=== PATIENT | female | born 1965 | race Native Hawaiian/Other Pacific Islander ===

== ENCOUNTER 2017-03-15 05:48 | Day surgery (SDC) | payer OTHER ==
[2017-03-08 09:06] VITALS: RESP 18
[2017-03-15] MEDS ORDERED: Lidocaine 1% Inj (20ml) ONE (07:15)
[2017-03-15] MEDS ORDERED: ceFAZolin IV 1 gm in Dextrose 2 GM/100 ML BAG IVPB ONE (07:16)
[2017-03-15] MEDS ORDERED: Ropivacaine 0.5% 30ML IV ONE (07:35)
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
[2017-03-15 07:39] VITALS: BMI 26.4
[2017-03-15] MEDS ORDERED: Propofol 10 mg/ml Inj (20 ML) ONE ×2 (07:39→10:09)
[2017-03-15] MEDS ORDERED: Midazolam 2 MG/2 ML VIAL ONE (07:40)
[2017-03-15] MEDS ORDERED: Succinylcholine 200 mg/10 ml Inj IV ONE ×2 (07:40→10:09)
[2017-03-15] MEDS ORDERED: Lidocaine 2% MPF (5 ml) Inj ONE ×2 (07:44→10:15)
[2017-03-15] MEDS ORDERED: Dexamethasone 4 mg/1 ml ONE (07:44)
[2017-03-15] MEDS ORDERED: EPINEPHrine 1 mg/ml (1:1000) Inj ONE (07:46)
[2017-03-15] MEDS ORDERED: ePHEDrine 50 mg/ml Inj ONE (08:12)
[2017-03-15] MEDS ORDERED: EPINEPHrine 1 mg/ml (1:1000) Inj IV ONE (08:45)
[2017-03-15] MEDS ORDERED: Oxycodone/Acetaminophen 5/325 mg Tab PO PRN (08:50)
[2017-03-15] MEDS ORDERED: Lactated Ringer's 1,000 ML IV ONE ×2 (09:02)
[2017-03-15] MEDS: methylPREDNISolone Depo 80 mg/ml Inj ONE ×2 (09:15→09:24)
[2017-03-15] MEDS: Bupivacaine 0.5% Inj(30mL) ONE ×2 (09:15→09:24)
[2017-03-15] MEDS: Bacitracin Ointment 30 GM TUBE ONE ×2 (09:17→09:25)
[2017-03-15] MEDS ORDERED: HYDROmorphone 0.5 mg/0.5 ml ISec IVP PRN (09:34)
--- NOTE | 2017-03-15 09:38 | PCM.SURG1 ---
Surgeon's Initial Post Op Note - Surgeon's Notes Surgeon: ben Information Systems Auditor: [place] Type of Anesthesia: General Endo, Spinal Anesthesia Administered By: DR Jamie gurrola Pre-Operative Diagnosis: post traumatic derangement L knee Operative Findings: chondral fx femoral trochlea (full thickness cartilage loss) . tricompartmental synovitis. tear medial meniscus/tear lateral meniscus Post-Operative Diagnosis: as above Operation Performed: arthroscopic chondroplasty/microfracture. arthroscopic tricompasrtmental synovectomy. arthroscopic partial medial/lateral meniscectomy. intraarticular injection Specimen/Specimens Removed: cartilage?synovium/bone fragments Estimated Blood Loss: EBL {In ML}: 2 Blood Products Given: N/A Drains Used: No Drains Post-Op Condition: Good Date of Surgery/Procedure: 03/15/17 Time of Surgery/Procedure: 08:45 (time in room 7:45/anwetshesdia indcution time)
[2017-03-15] MEDS ORDERED: Lactated Ringer's 1,000 ML IV SCH (09:45)
[2017-03-15] MEDS ORDERED: Rocuronium 10 mg/ml (5 ml) ONE (10:09)
[2017-03-15 10:59] VITALS: O2SAT 97
[2017-03-15 12:53] VITALS: BP 113/70; PULSE 86; TEMP 97.4
--- NOTE | 2017-03-16 10:30 | OP ---
PROCEDURE DATE: 03/15/2017 [facility] PREOPERATIVE DIAGNOSIS: Post-traumatic derangement of the right knee. POSTOPERATIVE DIAGNOSES: Tear, medial meniscus; tear, lateral meniscus; tricompartmental synovitis; chondral fracture, femoral trochlea. OPERATIVE PROCEDURE: 1. Arthroscopic microfracture/chondroplasty, femoral trochlea. 2. Surgical arthroscopy, partial medial and partial lateral meniscectomy. 3. Surgical arthroscopy, partial tricompartmental synovectomy. 4. Intra-articular injection, application of knee immobilizer. SURGEON: Johnny Bustos MD BYPRODUCT ENGINEER: Maryann Valero, certified registered nursing first aid teacher. TYPE OF ANESTHESIA: General endotracheal anesthesia, Jamie Adames MD, with a block. COMPLICATIONS: No complications. DRAINS: No drains. OPERATIVE INDICATION: Jaky Nunes is a 51-year-old woman, who presents after a slip and fall injury in May of 2016. The patient was at a conference in [place] and fell on fully maintained sidewalk/curbing sustaining direct trauma to both knees, most particularly in the right knee. The patient has failed conservative management. MRI examination was positive. The patient has failed conservative management consisting of activity modification and therapy. Pros, cons, risks, and benefits of surgical arthroscopy were discussed. The patient understands the discomfort. 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 The possibility of mechanical failure, infection, thromboembolic disease, possibility of later secondary or tertiary arthroplasty surgery is discussed. The patient understands the discomfort. DESCRIPTION OF PROCEDURE: After having obtained informed consent in the above fashion, after having identified side, site, and procedure and a critical pause/time-out after the satisfactory induction of the anesthetic, the patient identified as Lizzy Nunes in the supine position with all bony prominences well padded. The right lower extremity was prepped and free draped in usual fashion for arthroscopic knee surgery. The knee chavira was employed as well. After having identified side, site, and procedure, and after sterilely prepping and draping, lower extremity was exsanguinated using a 6-inch Esmarch bandage. Tourniquet which had been applied is inflated to 350 mmHg. The joint is insufflated with 10 mL of 1% lidocaine without epinephrine. At a point approximately one thumbs breadth lateral to the inferior pole of the patella, using a #11 blade followed by spreading, following by introduction of blunt trocar with the arthroscope anterolaterally, there was found to be a florid synovitis. At this point in time, triangulation is accomplished using a #18 spinal needle at a point approximately one thumbs breadth lateral, one thumbs breadth medial to the inferior pole of the patella. This having been accomplished, using #1 blade, followed by spreading, followed by introduction of the blunt trocar, the arthroscope was introduced. With the arthroscope introduced anterolaterally, there was found to be again an inflammatory synovitis secondary to the traumatic nature of the injury. A careful partial tricompartmental synovectomy was accomplished using the arthroscopic shaver. Bleeding points were controlled with the Tickade arthroscopic wand. At this point in time, after completing a partial tricompartmental synovectomy with the surgeon exerting a gentle valgus stress, there was found as reflected on the MRI a tear of the posterior horn of the medial meniscus. There was found to be no evidence of meniscal separation, but there was a tear of the medial meniscus. With the arthroscope first anterolaterally with the surgeon exerting a general valgus stress as not to injure the medial collateral ligament, a careful partial medial meniscectomy was accomplished using a combination of the straight biting basket forceps and the side biting basket forceps. Partial medial meniscectomy having been accomplished, the inner free edge was smoothed using the arthroscopic wand. The anterior cruciate ligament was found to be intact or perhaps strained. With the arthroscope anterolaterally, with the knee in [id number] position gently and again taking great care to protect the ligamentous integrity of the collateral ligaments, there was found to be a tear of the inner free edge of the posterior horn of the medial meniscus, extending from the posterior aspect to the mid aspect. Using a combination of the straight biting basket forceps and the side biting basket forceps, a partial lateral meniscectomy was accomplished. With the arthroscope anterolaterally, using a combination of the straight biting basket forceps and the side biting basket forceps, a partial lateral meniscectomy was accomplished. The inner free edge was smoothed using the ArthroCare wand. With the arthroscope anterolaterally, careful partial tricompartmental synovectomy was completed. Bleeding points were controlled with the Linden surface wand. Again, with the arthroscope anterolaterally, careful partial tricompartmental synovectomy was completed. The inner free edge was smoothed using the arthroscopic wand. At this point in time, there was found to be injury to the patellofemoral joint, most particularly the trochlear side. There was actually delamination of the articular cartilage and evidence of a full-thickness articular cartilage defect, please refer to the video photographs. With the arthroscope anterolaterally, careful partial tricompartmental synovectomy having been accomplished, the arthroscopic pick was used to perform a microfracture/abrasion chondroplasty. The abrasion chondroplasty having been accomplished using the arthroscopic shaver, the microfracture was accomplished using the arthroscopic pick in a honeycomb-type fashion. The wound was thoroughly irrigated with fragments of bone and articular cartilage were debrided using the 3.4 mm iBuyitBetter suction punch. Having performed the tricompartmental synovectomy, partial medial and lateral meniscectomy and the abrasion chondroplasty, the wound was thoroughly irrigated. Closures in layers with interrupted Vicryl and nylon. Intra-articular injection was offered of Marcaine, Duramorph, and Depo-Medrol. Bobby Mcrae compression dressing and knee immobilizers were applied. Johnny Bustos MD
--- NOTE | 2017-03-16 10:51 | PCM.ANESB3 ---
Femoral Nerve Block - Femoral Nerve Block Date of Procedure: 03/15/17 Anesthesiologist: Zacarias Pre-Procedure Diagnosis: Physician4 Procedure Performed: Femoral Nerve Block Left - Procedure Femoral Nerve Block: The procedure was explained to the patient that it is for the post-operative pain management. Consent was obtained after a thorough discussion with the patient regarding the benefits and possible complications of local anesthetic block of the femoral nerve at the inguinal crease area. The patient was brought to the operating room and standard monitors were applied. Time-out was held with the circulating nurse to confirm the correct surgery and the appropriate block. Under general anesthesia, patient was placed in supine position with fully extended lower extremities and the ___left groin exposed. The femoral artery was then carefully palpated. The ultrasound transducer was then applied to this area in the transverse plane and the femoral nerve was visualized lateral to the femoral artery and underneath the fascia iliaca. After thorough identification, the inguinal crease area was prepped with Chloraprep. At this point, a #22 gauge Stimuplex 2-inch needle was inserted immediately lateral to the femoral artery pulse at the inguinal crease and advanced perpendicularly. The needle was inserted to the ultrasound transducer in-plane towards the femoral nerve in a [id number] direction. Needle advancement was performed carefully under direct ultrasound visualization. Nerve stimulator was used and twitch of the quadriceps muscle was obtained at current of __0.4___ MA. After negative aspiration, ___2__cc of __0.5___% bupivicaine with 1: 200,000 epinephrine was injected and this was followed with __23__ __ cc of _0.5 % bupivicaine with 1:200,000 epinephrine . Under ultrasound guidance the local anesthetics were observed spreading below fascia iliaca and around the femoral nerve. The needle was removed intact and sterile dressing was applied. The patient had stable vital signs, was conscious and in no apparent distress. The patient tolerated the femoral nerve block well with stable vital signs and was prepared for subsequent surgery.
== END 2017-03-15 12:06 | disposition home or self-care (01) ==
LOC: H.OPSURG 05:48
PROVIDERS: ATTEND Orthopaedic Surgery
DX: S83.241A Other tear of medial meniscus, current injury, right knee, initial encounter (principal); G47.33 Obstructive sleep apnea (adult) (pediatric); M65.861 Other synovitis and tenosynovitis, right lower leg; W01.0XXA Fall on same level from slipping, tripping and stumbling without subsequent striking against object, initial encounter; E05.90 Thyrotoxicosis, unspecified without thyrotoxic crisis or storm
CPT/HCPCS: 20600; 29879; 29881; 88305; 97116; 97161; G8978; G8979; G8980; J0171; J0330; J0690; J1040; J1100; J1885; J2250; J2405; J2704; J2765; J3010; J7030; J7120

== ENCOUNTER 2017-06-28 06:13 | Day surgery (SDC) | payer OTHER ==
[2017-06-20 09:08] VITALS: BMI 29.9
[2017-06-28] MEDS ORDERED: Propofol 10 mg/ml Inj (20 ML) ONE ×2 (07:19→09:04)
[2017-06-28] MEDS ORDERED: Rocuronium 10 mg/ml (5 ml) ONE (07:20)
[2017-06-28] MEDS ORDERED: Lidocaine 4% (Laryng-O-Jet) Kit MM ONE (07:20)
[2017-06-28] MEDS ORDERED: Succinylcholine 200 mg/10 ml Inj IV ONE (07:20)
[2017-06-28] MEDS ORDERED: Phenylephrine 10 mg/ml Inj ONE (07:24)
[2017-06-28] MEDS ORDERED: EPINEPHrine 1 mg/ml (1:1000) Inj ONE (07:29)
[2017-06-28] MEDS ORDERED: Bacitracin Ointment 30 GM TUBE ONE (07:30)
--- NOTE | 2017-06-28 07:35 | CP.SDSHP ---
Same Day Surgery H & P - History Proposed Procedure: Right knee diagnostic arthroscopy, possible partial medial/ lateral menscectomy Pre-Op Diagnosis: Right knee medial meniscus tear - Previous Medical/Surgical History Endocrine/Metabolic: Thyroid Disease Pain: 6.Severe Pain Previous Surgical History: Left knee arthroscopy, left shoulder arthroscopy, subtotal thyroidectomy, x3 - Allergies Allergies: Allergies cinnamon Allergy (Verified 06/28/17 06:25) ITCHING mustard Adverse Reaction (Verified 06/28/17 06:23) ITCHING - Current Medications Current Medications: Tapazole - Physical Exam General Appearance: No acute distress Vital Signs: Vital Signs 06/28/17 06/28/17 06:56 07:22 Temperature 97.9 F Pulse Rate 70 70 Respiratory 18 Rate Blood Pressure 127/86 O2 Sat by Pulse 97 Oximetry Mental Status: Alert & Oriented x3 Neuro: WNL Heart: WNL Lungs: WNL GI: WNL - {Optional Preform as Required} Abdomen: WNL Integument: WNL Ortho: Other (Right knee: mild swelling, mild effusion, medial joint line pain, + Carolina's test medially, 4/5 Q/HS strength, gross NVI distally, comp soft/NT b/l) ENT: WNL - Impression Impression: Patient is a 52 y/o female who c/o right knee pain as a result of a trip an fall accident at a convention in [place] on 06/22/16. The patient has failed conservative management with NSAID's, physical therapy and steroid injections. She has had severe limitation with her activities of daily living secondary to the pain. The patient has opted for surgical management with knee arthroscopy. After discussing potential risks/benefits of the surgery, the patient expresses understanding and agrees to proceed with proposed procedure. Pt. Evaluated Today:Candidate for Anesthesia & Procedure: Yes - Date & Time Date: 06/28/17 Time: 07:41 Short Stay Discharge - Short Stay Discharge Admitting Diagnosis/Reason for Visit: M23.261 Disposition: HOME/ ROUTINE Referrals: Magnolia Orozco MD [Primary Care Provider] -
[2017-06-28] MEDS ORDERED: MethylPREDNISolone Depo 40 mg/ml Inj ONE (07:41)
[2017-06-28] MEDS ORDERED: Bupivacaine 0.5% Inj(30mL) ONE (07:41)
[2017-06-28] MEDS ORDERED: Lidocaine Hydrochloride 1% 20 ML ONE (07:41)
[2017-06-28] MEDS ORDERED: Lactated Ringer's 1,000 ML IV ONE (07:45)
[2017-06-28] MEDS ORDERED: Midazolam 2 MG/2 ML VIAL ONE (07:49)
[2017-06-28] MEDS ORDERED: Lidocaine 1% Inj (20ml) IJ ONE (07:50)
[2017-06-28] MEDS ORDERED: Bacitracin OINT 15GM TOP ONE (07:50)
[2017-06-28] MEDS ORDERED: Dexamethasone 4 mg/1 ml ONE (08:03)
[2017-06-28] MEDS ORDERED: ePHEDrine 50 mg/ml Inj ONE (08:19)
--- NOTE | 2017-06-28 09:16 | PCM.SURG1 ---
Surgeon's Initial Post Op Note - Surgeon's Notes Surgeon: Juli Manager Photo: LUZ Hernandez Type of Anesthesia: General Endo Anesthesia Administered By: Dr Davila Pre-Operative Diagnosis: post traumatic drangement R Knee Operative Findings: Chondral fx femoral trochlea. tear medial meniscus/tear lateral meniscus. tricompartmental synovitis Post-Operative Diagnosis: as above Operation Performed: arthroscopic abrasion arthroplasty. arthroscopic partial tricompartmental synovexctomy. arthroscopic partial medial/lateral meniscectomy Specimen/Specimens Removed: synovium/cartilage/bone Estimated Blood Loss: EBL {In ML}: 5 Blood Products Given: N/A Drains Used: No Drains Post-Op Condition: Good Date of Surgery/Procedure: 06/28/17 Time of Surgery/Procedure: 08:30 (time in room/anaesthesia indcution time 7:45)
[2017-06-28] MEDS ORDERED: Morphine 4 MG/ML VIAL IVP PRN ×2 (09:19→09:31)
--- NOTE | 2017-06-28 09:22 | PCM.ANESB3 ---
Femoral Nerve Block - Femoral Nerve Block Date of Procedure: 06/28/17 Anesthesiologist: Zacarias Pre-Procedure Diagnosis: Internal derangement right knee Post-Procedure Diagnosis: Same Procedure Performed: Femoral Nerve Block Right - Procedure Femoral Nerve Block: The procedure was explained to the patient that it is for the post-operative pain management. Consent was obtained after a thorough discussion with the patient regarding the benefits and possible complications of local anesthetic block of the femoral nerve at the inguinal crease area. The patient was brought to the operating room and standard monitors were applied. Time-out was held with the circulating nurse to confirm the correct surgery and the appropriate block. Under general anesthesia, patient was placed in supine position with fully extended lower extremities and the ____right____ groin exposed. The femoral artery was then carefully palpated. The ultrasound transducer was then applied to this area in the transverse plane and the femoral nerve was visualized lateral to the femoral artery and underneath the fascia iliaca. After thorough identification, the inguinal crease area was prepped with Chloraprep. At this point, a #22 gauge Stimuplex 2-inch needle was inserted immediately lateral to the femoral artery pulse at the inguinal crease and advanced perpendicularly. The needle was inserted to the ultrasound transducer in-plane towards the femoral nerve in a [id number] direction. Needle advancement was performed carefully under direct ultrasound visualization. Nerve stimulator was used and twitch of the quadriceps muscle was obtained at current of _0.4____ MA. After negative aspiration, ___2__cc of _0.5____% ____bupivicaine with 1:200, 000 was injected and this was followed with __28____ cc of _0.5_ % . Under ultrasound guidance the local anesthetics were observed spreading below fascia iliaca and around the femoral nerve. The needle was removed intact and sterile dressing was applied. The patient tolerated the femoral nerve block well with stable vital signs and was prepared for subsequent surgery.
[2017-06-28] MEDS ORDERED: Lactated Ringer's 1,000 ML IV SCH (09:30)
[2017-06-28] MEDS ORDERED: Oxycodone/Acetaminophen 5/325 mg Tab PO PRN (09:31)
[2017-06-28 09:56] VITALS: RESP 20
[2017-06-28 11:38] VITALS: BP 131/68; PULSE 93; TEMP 98.2
[2017-06-28 11:41] VITALS: O2SAT 100
--- NOTE | 2017-07-01 15:25 | OP ---
PROCEDURE DATE: 06/28/2017 LOCATION: [facility]. PREOPERATIVE DIAGNOSIS: Post-traumatic derangement of the right knee. POSTOPERATIVE DIAGNOSES: 1. Chondral fracture, femoral trochlea, full-thickness to the subchondral bone in the area of the femoral trochlea. 2. Tear medial meniscus and tear lateral meniscus. 3. Tricompartmental synovitis. OPERATIVE FINDINGS: As above. OPERATION PERFORMED: 1. Arthroscopic abrasion arthroplasty/microfracture femoral trochlea. 2. Arthroscopic partial tricompartmental synovectomy. 3. Arthroscopic partial medial and lateral meniscectomy. 4. Intra-articular injection. 5. Application of knee strapping and knee immobilizer. SURGEON: Johnny Bustos MD INSURANCE SALES SUPERVISOR: Maryann Valero, certified registered nursing assistant professor of surgery. TYPE OF ANESTHESIA: General endotracheal. ANESTHESIA ADMINISTERED BY: Jamie Adames MD ESTIMATED BLOOD LOSS: 5 mL. BLOOD PRODUCTS GIVEN: None. DRAINS: None. POSTOPERATIVE CONDITION Stable. TIME OF SURGERY: Incision time 8:30, time in the room and anesthesia induction time 7:45. 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 Significant past orthopedic issues as a result of this fall, the patient underwent surgical arthroscopy of the of the left knee. 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 The patient unfortunately necessitated a contralateral surgical arthroscopy and the patient's right knee failed conservative management with NSAIDs, physical therapy, and steroid injections. The patient has severe limitation with her activities of daily living, and the patient has opted for surgical management with knee arthroscopy. DESCRIPTION OF THE PROCEDURE: After having obtained informed consent, after thoroughly discussing the pros, cons, risks, and benefits of the surgical approach; the possibility of later replacement arthroplasty; the possibility of infection, mechanical failure, stiffness, nerve injury, again secondary or tertiary surgery was discussed. After having obtained informed consent, after the satisfactory induction of general endotracheal anesthesia and local block by Dr. Adames, after having identified side, site and procedure and critical pause/time-out, the patient identified as Jaky Nunes in the supine position with all bony prominences well padded. The right lower extremity was prepped and free draped in usual fashion for an extremity surgery. The tourniquet had been applied but was not yet inflated. After exsanguinating the limb using a 6-inch Esmarch bandage, tourniquet which had been applied is inflated to 350 mmHg. The joint is insufflated with 10 mL of 1% lidocaine without epinephrine. From an anterolateral portal using #11 blade followed by spreading, followed by introduction of the blunt trocar, the arthroscope was introduced. The [employer] knee chavira was employed. The tourniquet which had been applied was inflated to 350 mmHg taking great care to provide a gentle valgus stress but not so great as to injure the medial collateral ligament. The joint had been insufflated from an anterolateral portal using #11 blade followed by spreading followed by introduction of a blunt trocar, the arthroscope was introduced and there was found to be a doughy and irritative synovitis. Triangulation was accomplished at an anteromedial portal using number 18-gauge spinal needle one thumb's breadth medial to the inferior pole of the patella. Using #11 blade followed by spreading, followed by introduction of blunt trocar, the arthroscope was introduced. With the arthroscope anterolaterally, a careful partial tricompartmental synovectomy was accomplished both to improve visualization and to ablate irritative tissue with the arthroscope anterolaterally. Attention was turned to the medial meniscus, there was found to be a tear of the posterior horn of the medial meniscus. Please refer to the video photographs. With the arthroscope anterolaterally using a combination of the straight biting basket forceps and the upbiting basket forceps, a partial medial meniscectomy was accomplished. The arthroscope was transferred anteromedially and the deep posterior horn was accessed. A careful partial medial meniscectomy was accomplished using a combination of the straight biting basket forceps and the side biting basket forceps. The inner free edge was smoothed using the arthroscopic wand. The anterior cruciate ligament was found to be intact with the arthroscope now transferred back anterolaterally. With the knee in figure four position, there is found to be a tear of the inner free edge of the lateral meniscus. Using a combination of the straight biting basket forceps and the side biting basket forceps, a partial lateral meniscectomy was accomplished. With the arthroscope anterolaterally, a partial lateral meniscectomy was accomplished. With the arthroscope anterolaterally, using a combination of straight biting basket forceps and the side biting basket forceps, a partial lateral meniscectomy was accomplished. The inner free edge was smoothed using the arthroscopic wand. This having been accomplished, careful partial tricompartmental synovectomy was completed. Bleeding points were controlled with the arthroscopic wand. At this point in time with the knee in full extension, a suprapatellar partial synovectomy was accomplished. Bleeding points were controlled with the wand, and there was found to be evidence of a full-thickness chondral defect, please refer to the video photographs. This having been accomplished with the arthroscope in the lateral portal with the knee in full extension using the arthroscopic shaver an abrasion chondroplasty was accomplished eliminating loose cartilage fragments to the point of the subchondral plate. Using the angle pick, the honeycomb matrix was introduced and a microfracture was accomplished through this subchondral plate in the area of the trochlea. There was found to be relatively intact articular cartilage mantle on the patella, but it was clear that this occurred when the patient fell directly on her knee from the traumatic fall that she had had in [place] on 06/22/2016. The wound was thoroughly irrigated. Partial tricompartmental synovectomy was completed. Bleeding points were controlled with the wand. The incisions were closed with interrupted Vicryl and nylon. Intra-articular injection was offered. Bobby Mcrae compression dressing was applied and knee immobilizer. Unfortunately in my opinion, this constellation of injuries and the surgery therefrom are as a direct cause result of the slip and fall injury the patient had unfortunately realized on 06/22/2016. Johnny Bustos MD
== END 2017-06-28 12:15 | disposition home or self-care (01) ==
LOC: H.OPSURG 06:13
PROVIDERS: ATTEND Orthopaedic Surgery
DX: M65.861 Other synovitis and tenosynovitis, right lower leg (principal); S83.241A Other tear of medial meniscus, current injury, right knee, initial encounter; E05.90 Thyrotoxicosis, unspecified without thyrotoxic crisis or storm; W01.0XXA Fall on same level from slipping, tripping and stumbling without subsequent striking against object, initial encounter
CPT/HCPCS: 20600; 29876; 29879; 29880; 97116; 97161; 97530; G8978; G8979; G8980; J0171; J0330; J0690; J1100; J2001; J2250; J2370; J2405; J2704; J2765; J3010; J7030; J7120